=== PATIENT | female | born 1945 | race Caucasian/White ===

== ENCOUNTER → 2018-11-14 09:08 | Outpatient (CLI) | payer MEDICARE, MEDICAID, SELFPAY ==
--- NOTE | 2018-11-14 | DI.NM.S_ITS ---
PROCEDURE: NM BONE SCAN WHOLE BODY RADIOPHARMACEUTICAL: 21.3 mCi Tc-99m MDP IV. INDICATIONS: PAIN IN LEFT KNEE TECHNIQUE: Delayed whole-body scintigrams were obtained approximately 3-4 hours after intravenous injection of radiotracer. Anterior and posterior views were acquired from vertex to feet. Additional left and right oblique views of the bilateral knees were obtained. COMPARISON: [facility], CR, XR KNEE ARTHRITIC SERIES BI, 11/07/2018, 9:36. [facility], CR, XR KNEE 4+ VIEWS BILATERAL, 06/14/2017, 10:17. [facility], MR, KNEE WITHOUT CONTRAST, 03/23/2016, 9:13. [facility], CR, KNEE SERIES RT, 03/09/2016, 10:49. [facility], CR, KNEE 1-2 VIEWS LEFT, 11/03/2010, 18:08. MR, KNEE LT W/O CONTRAST, 10/02/2010, 9:45. FINDINGS: Degenerative osteoarthritic change is present at each a.c. joint, greater on the left than the right. Glenohumeral joint osteoarthritis is present bilaterally, slightly greater on the right than the left. The lumbosacral spine and hip joints bilaterally show a slight degree of degenerative change, but there is asymmetric moderately severe to severe degenerative change at the right knee and ankle, when compared to that on the left where a left knee arthroplasty appears present and there is only a mild degree of elevated as to uptake in that area and at the left ankle. IMPRESSION: Osteoarthritic change is minimal at the hips and lumbosacral spine but moderately severe bilaterally at the shoulders as noted, and especially prominent at the right knee and ankle. Left total knee arthroplasty without evidence of device loosening. Mild elevated isotope uptake in that area and at the left ankle. Dictated by: Gautam Campbell M.D. on 11/14/2018 at 14:50 Approved by: Gautam Campbell M.D. on 11/14/2018 at 15:11
== END ==
PROVIDERS: PCP Physician Assistant Medical; Visit Provider Orthopaedic Surgery
DX: M25.562 Pain in left knee (principal)
CPT/HCPCS: 78306; A9503

== ENCOUNTER 2019-06-23 17:47 | Emergency (ER) | payer MEDICARE, MEDICAID, SELFPAY ==
--- NOTE | 2019-06-23 17:53 | DI.RAD.S_ITS ---
PROCEDURE: XR KNEE LT 3V INDICATIONS: pain fall TECHNIQUE: 3 views of the knee were acquired. COMPARISON: [facility], CR, XR KNEE ARTHRITIC SERIES BI, 04/16/2019, 11:15. [place], [place], [place] BONE SCAN WHOLE BODY, 11/14/2018, 12:50. [facility], , KNEE 1-2 VIEWS LEFT, 11/03/2010, 18:08. FINDINGS: Bones: No fractures or dislocations. Left knee arthroplasty appears intact. The heterotopic ossifications along the quadriceps tendon region on the left have been previously present seen in April 2019 and stable over time. No suspicious bony lesions. Soft tissues: No joint effusion. No suspicious soft tissue calcifications. IMPRESSION: No trauma found, stable appearing left knee arthroplasty, stable appearing portions of heterotopic ossification above the patella previously present. Dictated by: Gautam Campbell M.D. on 06/23/2019 at 18:39 Approved by: Gautam Campbell M.D. on 06/23/2019 at 18:41
[2019-06-23 17:57] VITALS: BP 126/73; PULSE 65; RESP 16; TEMP 36.9; O2SAT 96; BMI 46.9
--- NOTE | 2019-06-23 18:21 | ED.LOWEXIN ---
HPI - Extremity Injury (Lower) General Chief Complaint: Extremity Injury, Lower Stated Complaint: Fell off couch hit buttocks and knee Time Seen by Provider: 06/23/19 17:53 Source: patient and EMS Mode of arrival: EMS Limitations: no limitations History of Present Illness HPI Narrative: 74-year-old female nonsmoker with history of hyperlipidemia presents by EMS for evaluation of her left knee. Patient states that she was attempting to sit back on a couch when she misjudged it and slipped back and is unclear of exactly what happened with her knee but has had discomfort ever since. She does not have any specific range of motion or location that hurts, she just states the whole thing hurts. She did have a total knee replacement years ago. She denies any head neck or back pain. She denies any hip or ankle pain. She states it is worse when she moves and improves with rest. Would be EMS was diverted here as they have no access to orthopedic care currently. MD complaint: knee injury Onset (ago): hour(s) Type of Injury: unknown Place: home Severity: moderate Relieving factors: rest Exacerbating factors: movement Context: fall Associated symptoms: able to partially bear weight Other symptoms: none Related Data Home Medications Medication Instructions Recorded Confirmed albuterol sulfate [Proventil HFA] 2 puff INH PRN #0 07/03/12 03/19/19 atorvastatin 20 mg tablet 20 mg PO 30 Days tab 12/17/17 03/19/19 fluticasone propionate 50 NASAL 30 Days #12 gram 12/17/17 03/19/19 mcg/actuation nasal spray,suspension oxybutynin chloride 10 mg PO 30 Days #30 tab 12/17/17 03/19/19 tablet,extended release 24 hr Previous Rx's Medication Instructions Recorded propranolol 10 mg tablet 10 mg PO BIDP PRN #180 tab 04/21/19 bupropion HCl 300 mg 24 hr tablet, 300 mg PO QAM #90 tab 05/14/19 extended release fluoxetine 20 mg capsule 20 mg PO QDAY #90 cap 05/14/19 gabapentin 100 mg capsule 100 mg PO SEE INSTRUCTIONS #450 cap 05/14/19 prazosin 5 mg capsule 5 mg PO HS #90 cap 05/14/19 Allergies Allergy/AdvReac Type Severity Reaction Status Date / Time amoxicillin Allergy Unknown Verified 05/14/19 10:59 ethyl alcohol Allergy Unknown Verified 05/14/19 10:59 etodolac Allergy Unknown Verified 05/14/19 10:59 naproxen Allergy Unknown Verified 05/14/19 10:59 oxaprozin Allergy Unknown Verified 05/14/19 10:59 risperidone Allergy Unknown Verified 05/14/19 10:59 tetanus toxoid, adsorbed Allergy Unknown Verified 05/14/19 10:59 acetaminophen [From Percocet] Allergy itching Verified 05/14/19 10:59 acyclovir Allergy Verified 05/14/19 10:59 doxycycline Allergy itching Verified 05/14/19 10:59 Iodine and Iodide Containing Allergy Verified 05/14/19 10:59 Produc NSAIDS (Non-Steroidal Allergy Verified 05/14/19 10:59 Anti-Inflamma oxycodone [From Percocet] Allergy itching Verified 05/14/19 10:59 aspirin AdvReac Unknown NON EC Verified 05/14/19 10:59 ASPIRIN CAUSES STOMACH UPSET Review of Systems Constitutional Constitutional: Denies chills, Denies fatigue, Denies fever(s), Denies frequent falls, Denies lethargy and Denies weakness Eyes Eyes: Denies change in vision, Denies eye discharge, Denies irritation and Denies loss of vision ENT Ears, Nose, Mouth, and Throat: Denies change in voice, Denies dizziness, Denies neck pain, Denies sore throat and Denies throat swelling Cardiovascular Cardiovascular: Denies chest pain, Denies irregular heart rhythm, Denies lightheadedness, Denies palpitations, Denies dyspnea, Denies dyspnea on exertion and Denies orthopnea Respiratory Respiratory: Denies cough, Denies dyspnea, Denies dyspnea on exertion and Denies wheezing Gastrointestinal Gastrointestinal: Denies abdominal pain, Denies change in bowel habits, Denies diarrhea, Denies nausea and Denies vomiting Genitourinary Genitourinary: Denies hematuria, Denies flank pain, Denies urinary incontinence and Denies urinary urgency Musculoskeletal Musculoskeletal: Denies back pain, Reports limited range of motion, Denies muscle weakness, Denies neck pain, Denies numbness and Denies tingling Integumentary/Breasts Skin/Breast: Denies pruritus, Denies erythema, Denies rash and Denies wounds Neurologic Neurologic: Denies behavioral changes, Denies confusion, Denies dizziness, Denies frequent falls, Denies loss of vision, Denies numbness, Denies tingling and Denies weakness Psychiatric Psychiatric: Denies anxiety, Denies behavioral changes, Denies confusion, Denies depression, Denies homicidal ideation and Denies suicidal ideation Endocrine Endocrine: Denies fatigue, Denies flushing and Denies palpitations Hematologic/Lymphatic Hematologic/Lymphatic: Denies easy bruising Allergic/Immunologic Allergic/Immunologic: Denies urticaria, Denies throat swelling and Denies wheezing Patient History Social History Smoking Status: Never smoker Exam Narrative Exam Narrative: GENERAL: [74] year old patient appears stated age. Well-nourished, well-developed patient, in mild distress. GCS 15 HEAD: Atraumatic. Normocephalic. EYES: Pupils equal round and reactive. Extraocular motions intact. No scleral icterus. No injection or drainage. ENT: Nose without bleeding, purulent drainage. Throat without erythema, tonsillar hypertrophy or exudate. Airway patent. NECK: Trachea midline. Non tender CARDIOVASCULAR: Regular rate and rhythm without murmurs, gallops, or rubs. RESPIRATORY: Clear to auscultation. Breath sounds equal bilaterally. No wheezes, rales, or rhonchi. GASTROINTESTINAL: Abdomen soft, non-tender, nondistended. EXTREMITIES: No edema or joint tenderness. No effusion, redness or warmth. No joint line tenderness. No pain with axial loading. No pain with Negrito's test BACK: Nontender without deformity or crepitance. No flank tenderness. NEURO: AOx3. SKIN: No rash or erythema of visible areas Initial Vital Signs Initial Vital Signs: Vital Signs Temperature 98.4 F 06/23/19 17:57 Pulse Rate 65 06/23/19 17:57 Respiratory Rate 16 06/23/19 17:57 Blood Pressure 126/73 06/23/19 17:57 Pulse Oximetry 96 06/23/19 17:57 Course Orders Ordered: ED Orders 06/23/19 17:53 XR knee LT 3V Stat Vital Signs Vital signs: Vital Signs - 8 hr 06/23/19 17:57 06/23/19 19:35 Temperature 98.4 F Pulse Rate 65 62 Respiratory Rate 16 16 Blood Pressure 126/73 165/74 H Pulse Oximetry 96 97 MDM - Extremity Injury (Lower) Imaging Data Xray Knee: Radiologist's impression: [address] [address] XRay Report Signed Patient: Mely Campos LMR#: [id number] : 7Acct:[id number] Age/Sex: 74 / FDate of Service: 06/23/19 Loc: ED Accession Number: [id number] Procedure: XR knee LT 3V Ordering Provider: Quiana Brito D.O. PROCEDURE: XR KNEE LT 3V INDICATIONS: pain fall TECHNIQUE: 3 views of the knee were acquired. COMPARISON: [facility], CR, XR KNEE ARTHRITIC SERIES BI, 04/16/2019, 11:15. [place], [place], [place] BONE SCAN WHOLE BODY, 11/14/2018, 12:50. [facility], , KNEE 1-2 VIEWS LEFT, 11/03/2010, 18:08. FINDINGS: Bones: No fractures or dislocations. Left knee arthroplasty appears intact. The heterotopic ossifications along the quadriceps tendon region on the left have been previously present seen in April 2019 and stable over time. No suspicious bony lesions. Soft tissues: No joint effusion. No suspicious soft tissue calcifications. IMPRESSION: No trauma found, stable appearing left knee arthroplasty, stable appearing portions of heterotopic ossification above the patella previously present. Dictated by: Gautam Campbell M.D. on 06/23/2019 at 18:39 Approved by: Gautam Campbell M.D. on 06/23/2019 at 18:41 Discharge Plan Departure Patient Disposition: Home Clinical Impression: Left knee sprain Qualifiers: Encounter type: initial encounter Involved ligament of knee: unspecified ligament Qualified Code(s): S83.92XA - Sprain of unspecified site of left knee, initial encounter Discharge Date/Time: 06/23/19 19:36 Instructions: DI for Knee Sprain Activity Restrictions/Additional Instructions: *You have been diagnosed with Left knee sprain *What to do: *Take medications as directed *Follow up with your primary care provider in 2-3 days, call for an appointment. Let them know you were seen in the Emergency Department and that we ask that you be seen in follow up *Return to ER if you should have any new, worsening or concerning symptoms Prescriptions: No Action atorvastatin 20 mg tablet 20 mg PO 30 Days RF: 0 oxybutynin chloride 10 mg tablet extended release 24hr PO 30 Days Qty: 30 RF: 0 fluticasone propionate 50 mcg/actuation spray,suspension NASAL 30 Days Qty: 12 RF: 0 bupropion HCl 300 mg tablet extended release 24 hr 300 mg PO QAM Qty: 90 RF: 1 fluoxetine 20 mg capsule 20 mg PO QDAY Qty: 90 RF: 1 gabapentin 100 mg capsule 100 mg PO SEE INSTRUCTIONS Qty: 450 RF: 1 prazosin [Minipress] 5 mg capsule 5 mg PO HS Qty: 90 RF: 1 albuterol sulfate [Proventil HFA] 90 MCG/PUFF HFA aerosol inhaler 2 puff INH PRN Qty: 0 RF: 0 propranolol 10 mg tablet 10 mg PO BIDP PRN (Reason: anxiety) Qty: 180 RF: 0 Referrals: Melody Bryant PA-C [Primary Care Provider] -
--- NOTE | 2019-06-23 18:29 | PC.NURSE ---
pt reports she was out at a shop in [place] and went to sit and fell and hit her bottom and her L knee is aching due to crawling around and trying to stand. pt reports she is not able to bear weight. She has had her L knee replaced in the past. No swelling noted. denies hip pain, no noted leg shortening. 2+ pulses. taken for XR. in to assess
[2019-06-23 19:35] VITALS: BP 165/74; PULSE 62; RESP 16; O2SAT 97
== END 2019-06-23 19:36 | disposition home or self-care (01) ==
PROVIDERS: Emergency Provider Emergency Medicine; PCP Physician Assistant Medical
DX: S83.92XA Sprain of unspecified site of left knee, initial encounter (principal); W19.XXXA Unspecified fall, initial encounter
CPT/HCPCS: 73562; 99282; 99283

== ENCOUNTER → 2020-10-10 13:15 | Outpatient (CLI) | payer MEDICARE, MEDICAID, SELFPAY ==
[2020-10-10 17:05] LABS: COVID19 -Nasal RAPID Negative (Negative)
== END ==
PROVIDERS: PCP Physician Assistant Medical; Visit Provider Physician Assistant
DX: Z01.812 Encounter for preprocedural laboratory examination (principal); Z20.822 Contact with and (suspected) exposure to COVID-19
CPT/HCPCS: 87635; C9803

== ENCOUNTER 2020-10-12 08:04 | Day surgery (SDC) | payer MEDICARE, MEDICAID, SELFPAY ==
--- NOTE | 2020-10-11 18:47 | PM.PREOP ---
Pre-operative Note COVID-19 COVID-19 status: Negative Interval Note History & Physical reviewed/Exam performed by Physician: Yes Changes to H&P: No H&P completed within 30 days and has changed as indicated here:: Fasting glucose 151. Patient cooperative and in good spirits.
[2020-10-12] VITALS (10 sets, daily range): BP systolic 119–163; BP diastolic 67–93; PULSE 59–76; RESP 11–21; TEMP 36.1–36.7; O2SAT 94–98; BMI 36.3
--- NOTE | 2020-10-12 07:25 | PM.OP.1 ---
Operative Date/Time/Diagnoses Date of procedure: 10/12/20 Time of procedure: 09:45 Procedure & Clinicians Procedure: Preoperative diagnoses: 1. 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 2. Schizophrenia with a tardive dyskinesia requiring general anesthesia. 3. Diabetes. 4. Bipolar disorder 5. Previous deep vein thrombosis 6. Depression 6. Arthritis 7. Hernia. Postoperative diagnoses: 1. Cataract removed by phacoemulsification with placement of posterior chamber intraocular lens with general anaesthesia use of capsular dye . Procedure: Phacoemulsification with posterior chamber intraocular lens implant Surgeon: Radha Vidal MD Complications: None Specimen: None Implant: [id number]+18.0 Blood loss: None Anesthesia: Retrobulbar with monitored standby Description of procedure: Patient presents with a complaint of decreased vision due to cataract which is affecting activities of daily living. She has a difficult time expressing her visual ability due to her psychiatric condition. She is now having difficulty however worth more for standard activities and she has very dense cataract. Removing this may improve her risk of falls and quality of life. She does have a caregiver and has plans on how to help with her postoperative care. The patient wants surgery to improve vision. The patient was taken to the operating room and given IV sedation. A laryngeal mask airway was placed due to her tardive dyskinesia and ability to cooperate. A retrobulbar block consisting of 6 cc of 2% xylocaine without epinephrine mixed half and half with 0.5% Marcaine with 1 cc of hyaluronidase added is placed between the medial and lateral 1/3 of the inferior orbital rim for intraoperative and postop anesthesia. A Betadine patch test was done in the preoperative holding room and she did not react and therefore it was felt safe to use this for her eye prep. The eye is manually massaged for 30 sec, prepped using Betadine solution, and draped in the usual sterile fashion. Temporal approach was made, a 1 mm side-port incision was made 90? from the proposed clear corneal incision position. Phenylephrine 1.5% mixed with 1% xylocaine 0.2 cc was placed into the anterior chamber. An air bubble was placed followed by capsular dye. The excess dye and air was then irrigated out using BSS. Viscoat followed by Healon was then placed. A 2.6 mm clear incision with a 2.6 mm blade was placed. A 360 degree capsulorrhexis style capsulotomy was then performed with a cystitome needle on a Bomboardon. Hydrodelineation and hydrodissection were performed. The phacoemulsification unit is introduced, and sculpting notice used to groove the central lens. I was able to crack it and the zonules held intact therefore a MiLoop was not used. The lens was divided into quadrants. The lens was then removed in chopping mode. Epi nucleus is removed with epinuclear mode and irrigation aspiration was used to remove the peripheral cortex. The posterior capsule is polished. The intraocular lens is selected, inspected, power confirmed, and placed in the posterior chamber. The wound was stromally hydrated and tested for leaks, there was none and it was left sutureless. Vigamox 0.1 cc was placed into the anterior chamber. Kenalog 0.2 cc was placed in the superior subconjunctival space. A drop of antibiotic and was placed and the eye was patched and shielded. The patient was stable and returned to the recovery room in excellent condition. Dictated by: Radha Vidal MD Copy to: [facility] Same procedure as scheduled: Yes
[2020-10-12] MEDS: PROPARACAINE 0.5% OPHTH SOL 2 DROPS EYE-OP (08:49)
[2020-10-12] MEDS: LACTATED RINGERS 1,000 ML 42 ML IV (08:51)
[2020-10-12] MEDS: CATARACT EYE COMPOUND (10 DROPS/SYRINGE) 3 DROPS EYE-OP (08:51)
[2020-10-12] MEDS: LIDOCAINE 2% 4 ML, BUPIVACAINE 0.5% (PF) 4 ML, HYALURONIDASE 150 UNIT INJ (09:56)
[2020-10-12] MEDS: CHONDROIDTIN/SOD HYALURONATE 1.05 ML SYRINGE INTRAOCULA (10:06)
[2020-10-12] MEDS: ERYTHROMYCIN OPHTH 1 GM OINT 1 APPLIC EYE-LEFT (10:06)
[2020-10-12] MEDS: HYALURONATE SODIUM 10 MG/ML SYRINGE INJ (10:06)
[2020-10-12] MEDS: PHENYLEPHRINE/LIDOCAINE VIAL (OR) 0.2 ML EYE-OP (10:07)
[2020-10-12] MEDS: TRYPAN BLUE 0.5 ML SYRINGE INJ (10:07)
[2020-10-12] MEDS: MOXIFLOXACIN INJ 5 MG/ML VIAL EYE-OP (10:07)
[2020-10-12] MEDS: TRIAMCINOLONE 50 MG/5 ML VIAL INJ (10:07)
[2020-10-12] MEDS: BALANCED SALT IRRIG SOLN NO.2 500 ML, EPINEPHrine 1 MG IRR (10:08)
== END 2020-10-12 11:35 | disposition home or self-care (01) ==
LOC: OR 08:08
PROVIDERS: PCP Physician Assistant Medical; Referring Provider Ophthalmology; Visit Provider Ophthalmology
PROC: (CPT 66982; principal; 2020-10-12 09:45)
DX: H25.812 Combined forms of age-related cataract, left eye (principal); F25.9 Schizoaffective disorder, unspecified; G24.01 Drug induced subacute dyskinesia; E11.9 Type 2 diabetes mellitus without complications; Z86.718 Personal history of other venous thrombosis and embolism; F32.9 Major depressive disorder, single episode, unspecified
CPT/HCPCS: 66982; J0171; J2704; J3301; J3470

== ENCOUNTER → 2020-10-24 13:19 | Outpatient (CLI) | payer MEDICARE, MEDICAID, SELFPAY ==
[2020-10-24 15:58] LABS: COVID19 -Nasal RAPID Negative (Negative)
== END ==
PROVIDERS: PCP Physician Assistant Medical; Visit Provider Physician Assistant
DX: Z20.822 Contact with and (suspected) exposure to COVID-19 (principal)
CPT/HCPCS: 87635; C9803

== ENCOUNTER 2020-10-26 06:29 | Day surgery (SDC) | payer MEDICARE, MEDICAID, SELFPAY ==
--- NOTE | 2020-10-25 18:11 | PM.PREOP ---
Pre-operative Note COVID-19 COVID-19 status: Negative Interval Note History & Physical reviewed/Exam performed by Physician: Yes Changes to H&P: No H&P completed within 30 days and has changed as indicated here:: Fasting glucose is 137.
[2020-10-26] VITALS (11 sets, daily range): BP systolic 129–165; BP diastolic 69–84; PULSE 63–72; RESP 12–18; TEMP 35.9–36.6; O2SAT 94–99; BMI 37.1
[2020-10-26] MEDS: CATARACT EYE COMPOUND (10 DROPS/SYRINGE) 3 DROPS EYE-OP (07:25)
[2020-10-26] MEDS: PROPARACAINE 0.5% OPHTH SOL 2 DROPS EYE-OP (07:30)
--- NOTE | 2020-10-26 07:32 | PM.OP.1 ---
Operative Date/Time/Diagnoses Date of procedure: 10/26/20 Time of procedure: 07:45 Procedure & Clinicians Procedure: Preoperative diagnoses: 1. Right complex surgery with use of capsular dye. 2. Mature or advanced nuclear sclerotic and cortical cataract with poor visibility of the anterior capsule increasing surgical risks of complications. 3. Schizophrenia. 4. Bipolar Depressive disorder 5. Diabetes 6. Hernia. 7. Sleep apnea 8. Arrhythmia Postoperative diagnoses: 1. Complex surgery with use of capsular dye, 2. Placement of a posterior chamber intraocular lens implant. Surgeon: Radha Vidal MD Complications: none Specimen: None Implant: [id number]+18.5 Blood loss: None Anesthesia: Retrobulbar with monitored standby. Description of procedure: Dictated by: Radha Vidal MD Post operative diagnoses: 1. Right cataract removed with use of capsular dye . 2. Placement of a posterior chamber intraocular lens. Procedure: Phacoemulsification with posterior chamber intraocular lens implant Surgeon: Radha Vidal MD Blood loss: None Anesthesia: Laryngeal mask airway with Retrobulbar with monitored standby Description of procedure: Patient has presented with decreased vision due to cataract which is affecting activities of daily living. She has schizophrenia bipolar disorder and has now noted her advanced cataracts are interfering with her distance and near vision by causing significant blur. Although she has caregiver she places her on medications and needs to see better. She has had successful left cataract surgery 2 weeks ago under general anesthesia due to this disorder. She understands the extra risk due to advanced cataract and for surgery during COVID-19 epidemic. Her blood sugar is stable at 130 and she is cooperative and understands risks and. The patient wants surgery to improve vision. A distance target is chosen. The patient was taken to the operating room and given IV sedation. A laryngeal mask airway was placed. A retrobulbar block consisting of 6 cc of 2% xylocaine without epinephrine mixed half and half with 0.5% Marcaine with 1 cc of hyaluronidase added is placed between the medial and lateral 1/3 of the inferior orbital rim for postop pain control. The eye is manually massaged for 30 sec, prepped using Betadine solution, and draped in the usual sterile fashion. Temporal approach was made, a 1 mm side-port incision was performed 90 degrees from the planned corneal wound. Phenylephrine 1.5% mixed with 1% xylocaine 0.2 cc was placed into the anterior chamber. An air bubble was placed and Visudyne dye was placed to improve visibility of the anterior capsule. The dye was irrigated out to reduce bubbles. Viscoat followed by Panfilo was then placed. A 2.6 mm clear incision with a 2.6 mm blade was placed. A 360 degree capsulorrhexis style capsulotomy was then performed with a cystitome needle on a Healon. Hydrodelineation and hydrodissection were performed. The phacoemulsification unit is introduced, and sculpting used to groove the central lens. It is then removed in chopping mode. Epi nucleus is removed with epinuclear mode and irrigation aspiration was used to remove the peripheral cortex. The posterior capsule is polished. The intraocular lens is selected, inspected, power confirmed, and placed in the posterior chamber. The pupil was constricted with Miostat. The wound was stromally hydrated and tested for leaks, there was none and was left sutureless. Vigamox 0.1 cc was placed into the anterior chamber. Kenalog 0.2 cc was placed in the superior subconjunctival space. A drop of antibiotic and was placed and the eye was patched and shielded. The patient was stable and returned to the recovery room in excellent condition after extubation . Dictated by: Radha Vidal MD Copy to: [facility] Same procedure as scheduled: Yes
[2020-10-26] MEDS: LACTATED RINGERS 1,000 ML 42 ML IV (07:45)
[2020-10-26] MEDS: CHONDROIDTIN/SOD HYALURONATE 1.05 ML SYRINGE INTRAOCULA (08:19)
[2020-10-26] MEDS: ERYTHROMYCIN OPHTH 1 GM OINT 1 APPLIC EYE-RIGHT (08:19)
[2020-10-26] MEDS: PHENYLEPHRINE/LIDOCAINE VIAL (OR) 0.2 ML EYE-OP (08:19)
[2020-10-26] MEDS: HYALURONATE SODIUM 10 MG/ML SYRINGE INJ (08:19)
[2020-10-26] MEDS: TRIAMCINOLONE 50 MG/5 ML VIAL INJ (08:20)
[2020-10-26] MEDS: MOXIFLOXACIN INJ 5 MG/ML VIAL EYE-OP (08:20)
[2020-10-26] MEDS: TRYPAN BLUE 0.5 ML SYRINGE INJ (08:21)
[2020-10-26] MEDS: BALANCED SALT IRRIG SOLN NO.2 500 ML, EPINEPHrine 1 MG IRR (08:21)
[2020-10-26] MEDS: LIDOCAINE 2% 4 ML, BUPIVACAINE 0.5% (PF) 4 ML, HYALURONIDASE 150 UNIT INJ (08:22)
== END 2020-10-26 10:01 | disposition home or self-care (01) ==
LOC: OR 06:34
PROVIDERS: PCP Physician Assistant Medical; Referring Provider Ophthalmology; Visit Provider Ophthalmology
PROC: (CPT 66982; principal; 2020-10-26 07:45)
DX: H25.811 Combined forms of age-related cataract, right eye (principal); E11.9 Type 2 diabetes mellitus without complications; I49.9 Cardiac arrhythmia, unspecified; F20.9 Schizophrenia, unspecified; J45.909 Unspecified asthma, uncomplicated; G47.33 Obstructive sleep apnea (adult) (pediatric)
CPT/HCPCS: 66982; 82962; J0171; J1100; J2405; J2704; J3301; J3470

== ENCOUNTER 2021-03-02 23:18 | Emergency (ER) | payer MEDICARE, MEDICAID, SELFPAY ==
[2021-03-02 23:42] VITALS: BP 139/85; PULSE 104; RESP 24; TEMP 37.1; O2SAT 95; BMI 47.1
[2021-03-03] VITALS (24 sets, daily range): BP systolic 133–178; BP diastolic 60–82; PULSE 79–105; O2SAT 92–96
--- NOTE | 2021-03-03 03:11 | ED_ITS ---
HPI - Abdominal Pain General Chief Complaint: Abdominal Pain Stated Complaint: Abd pain Time Seen by Provider: 03/03/21 02:20 Source: patient and EMS Mode of arrival: EMS Limitations: no limitations History of Present Illness HPI narrative: 75-year-old woman with a history of hypertension hyperlipidemia depression and recurrent umbilical hernia presents 24 hours after discharge from [facility] after 2nd umbilical hernia repair. She complains of increasing abdominal pain and distension. States that she is passing gas however pain is not being adequately controlled at the [facility] where [facility] is [facility]. As they are just meeting this woman they were concerned and sent her for further emergency room evaluation. Related Data Home Medications Medication Instructions Recorded Confirmed albuterol sulfate 90 mcg/actuation 2 puff INH PRN #0 07/03/12 02/17/21 aerosol inhaler (Proventil HFA) atorvastatin 20 mg tablet 20 mg PO BEDTIME 30 Days tab 12/17/17 02/17/21 Lactobacillus acidophilus 1 cap PO DAILY 10/12/20 02/17/21 (Acidophilus) calcium carbonate 600 mg calcium 1,200 mg PO DAILY 10/12/20 02/17/21 (1,500 mg) tablet (Calcium) cholecalciferol (vitamin D3) 25 25 mcg PO DAILY 10/12/20 02/17/21 mcg (1,000 unit) capsule (Vitamin D3) dicyclomine 10 mg capsule 10 mg PO QID 10/12/20 02/17/21 meloxicam 7.5 mg tablet 7.5 mg PO DAILY 10/12/20 02/17/21 montelukast 10 mg tablet 10 mg PO DAILY 10/12/20 02/17/21 oxybutynin chloride 10 mg 10 mg PO DAILY 10/12/20 02/17/21 tablet,extended release 24 hr acetaminophen 500 mg tablet 500 mg PO Q6H PRN 02/17/21 02/17/21 (Tylenol Extra Strength) fluticasone 100 mcg-salmeterol 50 1 inh INHALATION BID 02/17/21 02/17/21 mcg/dose blistr powdr for inhalation (Advair Diskus) ondansetron 8 mg disintegrating 8 mg PO Q12H 02/17/21 02/17/21 tablet Previous Rx's Medication Instructions Recorded bupropion HCl 300 mg 24 hr tablet, 300 mg PO QAM #90 tab 02/17/21 extended release fluoxetine 20 mg capsule 20 mg PO QDAY #90 cap 02/17/21 gabapentin 100 mg capsule 100 mg PO SEE INSTRUCTIONS #450 cap 02/17/21 prazosin 5 mg capsule (Minipress) 5 mg PO HS #90 cap 02/17/21 propranolol 10 mg tablet 10 mg PO BIDP PRN #180 tab 02/17/21 Allergies Allergy/AdvReac Type Severity Reaction Status Date / Time amoxicillin Allergy Unknown Verified 02/17/21 12:54 ethyl alcohol Allergy Unknown Verified 02/17/21 12:54 etodolac Allergy Unknown Verified 02/17/21 12:54 oxaprozin Allergy Unknown Verified 02/17/21 12:54 risperidone Allergy Unknown Verified 02/17/21 12:54 tetanus toxoid, adsorbed Allergy Unknown Verified 02/17/21 12:54 acyclovir Allergy Verified 02/17/21 12:54 doxycycline Allergy itching Verified 02/17/21 12:54 Iodine and Iodide Containing Allergy Verified 02/17/21 12:54 Produc oxycodone [From Percocet] Allergy itching Verified 02/17/21 12:54 Review of Systems Review of Systems Narrative: Recent hospitalization but no reports of fever. She has a baseline standard cough that is not changed. She notes that she is passing gas but has not yet had a bowel movement post surgery. She has an abdominal binder in place. Chronic and unchanged lower extremity edema, no headaches no acute neur ologic changes Patient History Medical History (Updated 03/03/21 @ 07:18 by Judie Velazquez MD) Bipolar disorder Schizophrenia Social History household members: none Smoking Status: Never smoker alcohol intake: never Smoking Status: Never smoker Substance Use Type: does not use Exam Narrative Exam Narrative: General: Morbidly obese woman in moderate distress able to cooperate fully with history and exam HEENT: Moist mucous membranes, normal sclera with reactive pupils, Respiratory: Lungs are clear to auscultation, no wheezing no rales no rhonchi. Full and symmetrical air movement Cardiac: Regular rate and rhythm no murmurs no bruits Abdomen: Distended, tender, surgical dressing in place midline, hyperactive bowel tones without borborygmi Skin: Warm and dry, no rashes Neurologic: Grossly neurologically intact with no obvious asymmetries or abnormalities Extremities: No trauma, well perfused Psych: Cooperative, appropriate insight and affect Initial Vital Signs Initial Vital Signs: Vital Signs Temperature 98.8 F 03/02/21 23:42 Pulse Rate 104 H 03/02/21 23:42 Respiratory Rate 24 03/02/21 23:42 Blood Pressure 139/85 03/02/21 23:42 Pulse Oximetry 95 03/02/21 23:42 Course Orders Ordered: ED Orders 03/03/21 03:14 Urinalysis and Microscopic Stat 03/03/21 03:21 Complete Blood Count AUTO DIFF Stat Comprehensive Metabolic Panel Stat Type and Screen Stat 03/03/21 05:34 CT abdomen pelvis wo con Stat Hydromorphone HCl (Hydromorphone 0.5 Mg Inj) 0.5 mg IV Q15MIN PRN PRN Reason: Pain, Last Admin: 03/03/21 06:44 Dose: 0.5 mg Documented by: MAMADOU Discontinued Medications Oxycodone HCl (Oxycodone Ir 5 Mg Tablet) 5 mg PO NOW ONE Stop: 03/03/21 07:21 Vital Signs Vital signs: Vital Signs - 8 hr 03/02/21 23:42 03/03/21 00:54 03/03/21 00:56 Temperature 98.8 F Pulse Rate 104 H 97 H 98 H Respiratory Rate 24 Blood Pressure 139/85 178/78 H Pulse Oximetry 95 95 95 03/03/21 01:00 03/03/21 01:30 03/03/21 02:00 Temperature Pulse Rate 94 H 97 H 92 H Respiratory Rate Blood Pressure 170/76 H 162/74 H Pulse Oximetry 93 95 95 03/03/21 02:01 03/03/21 02:30 03/03/21 03:00 Temperature Pulse Rate 95 H 95 H 95 H Respiratory Rate Blood Pressure 152/69 H 152/72 H 171/79 H Pulse Oximetry 95 95 95 03/03/21 03:30 03/03/21 03:31 03/03/21 04:00 Temperature Pulse Rate 94 H 93 H 91 H Respiratory Rate Blood Pressure 157/67 H 159/73 H Pulse Oximetry 95 94 94 03/03/21 04:30 03/03/21 04:31 03/03/21 05:00 Temperature Pulse Rate 91 H 90 92 H Respiratory Rate Blood Pressure 149/69 H 166/74 H Pulse Oximetry 94 94 95 03/03/21 05:30 03/03/21 05:31 03/03/21 06:00 Temperature Pulse Rate 105 H 105 H 92 H Respiratory Rate Blood Pressure 156/82 H Pulse Oximetry 96 96 94 03/03/21 06:01 03/03/21 06:30 03/03/21 07:00 Temperature Pulse Rate 89 83 95 H Respiratory Rate Blood Pressure 168/69 H Pulse Oximetry 94 92 95 MDM - Abdominal Pain Lab Data Result diagrams: 03/03/21 03:21 03/03/21 03:21 Labs: Lab Results 03/03/21 03/03/21 03/03/21 Range/Units 03:21 03:21 03:21 WBC 12.0 H (4.5-11.0) X10^3/uL RBC 4.26 (4.0-5.2) X10^6/uL Hgb 11.9 L (12.0-16.0) g/dL Hct 37.6 (36-46) % MCV 88.3 (80-100) fL MCH 28.0 (26-34) PG MCHC 31.7 (30-36) % RDW 15.6 H (11.6-14.8) % Plt Count 353 (150-400) X10^3/uL Neut % (Auto) 63.7 (50-75) % Lymph % (Auto) 17.8 L (25-40) % [place] % (Auto) 6.9 (3-14) % Eos % (Auto) 10.5 H (2-4) % Baso % (Auto) 1.1 (0-2) % Neut # (Auto) 7600 H (8903-4445) /uL Lymph # (Auto) 2100 (8175-4429) /uL [place] # (Auto) 800 (0-900) /uL Eos # (Auto) 1300 H (0-450) /uL Baso # (Auto) 100 (0-100) /uL Sodium 137 (137-145) mmol/L Potassium 4.0 (3.4-5.1) mmol/L Chloride 105 (98-107) mmol/L Carbon Dioxide 25 (22-32) mmol/L BUN 6 L (7-17) mg/dL Creatinine 0.79 (0.52-1.04) mg/dL Estimated GFR > 60.0 (>60) mL/min BUN/Creatinine Ratio 7.6 (6-22) Glucose 161 H (80-110) mg/dL Calcium 9.3 (8.4-10.2) mg/dL Total Bilirubin 0.4 (0.2-1.3) mg/dL AST 44 H (14-36) IU/L ALT 34 (<35) IU/L Alkaline Phosphatase 112 (38-126) U/L Total Protein 7.0 (6.3-8.2) g/dL Albumin 3.7 (3.5-5.0) g/dL Globulin 3.3 (1.7-4.1) g/dL Albumin/Globulin Ratio 1.1 (1.0-2.8) Urine Color Urine Appearance Urine pH (4.5-8.0) Ur Specific [place] (1.000-1.035) Urine Protein (Negative) Urine Glucose (UA) (Negative) g/dL Urine Ketones (NEGATIVE) Urine Occult Blood (Negative) Urine Nitrate (Negative) Urine Bilirubin (NEGATIVE) Urine Urobilinogen (0.2) E.U./dL Ur Leukocyte Esterase (NEGATIVE) Blood Type O Negative Antibody Screen Negative 03/03/21 Range/Units 07:13 WBC (4.5-11.0) X10^3/uL RBC (4.0-5.2) X10^6/uL Hgb (12.0-16.0) g/dL Hct (36-46) % MCV (80-100) fL MCH (26-34) PG MCHC (30-36) % RDW (11.6-14.8) % Plt Count (150-400) X10^3/uL Neut % (Auto) (50-75) % Lymph % (Auto) (25-40) % [place] % (Auto) (3-14) % Eos % (Auto) (2-4) % Baso % (Auto) (0-2) % Neut # (Auto) (3036-8138) /uL Lymph # (Auto) (8867-2217) /uL [place] # (Auto) (0-900) /uL Eos # (Auto) (0-450) /uL Baso # (Auto) (0-100) /uL Sodium (137-145) mmol/L Potassium (3.4-5.1) mmol/L Chloride (98-107) mmol/L Carbon Dioxide (22-32) mmol/L BUN (7-17) mg/dL Creatinine (0.52-1.04) mg/dL Estimated GFR (>60) mL/min BUN/Creatinine Ratio (6-22) Glucose (80-110) mg/dL Calcium (8.4-10.2) mg/dL Total Bilirubin (0.2-1.3) mg/dL AST (14-36) IU/L ALT (<35) IU/L Alkaline Phosphatase (38-126) U/L Total Protein (6.3-8.2) g/dL Albumin (3.5-5.0) g/dL Globulin (1.7-4.1) g/dL Albumin/Globulin Ratio (1.0-2.8) Urine Color Yellow Urine Appearance Clear Urine pH 7.0 (4.5-8.0) Ur Specific [place] 1.010 (1.000-1.035) Urine Protein Negative (Negative) Urine Glucose (UA) Negative (Negative) g/dL Urine Ketones Negative (NEGATIVE) Urine Occult Blood Negative (Negative) Urine Nitrate Negative (Negative) Urine Bilirubin Negative (NEGATIVE) Urine Urobilinogen 0.2 (0.2) E.U./dL Ur Leukocyte Esterase Trace H (NEGATIVE) Blood Type Antibody Screen Imaging Data CT scan - abdomen/pelvis: My Impression: Marked distention of the bladder suggesting postsurgical urinary retention. Cystic lesion within the left adnexa which may arise from the left ovary. Nonobstructing left renal calculus. Gas this distention of the colon extends to the level of the sigmoid colon is likely on the basis of a colonic ileus. Emmy Hurley MD [facility] Narrative Medical decision making narrative: 75-year-old woman discharged yesterday after an umbilical hernia repair. Surgical dressings are clean and dry. CT scan of the abdomen shows significantly distended bladder and significant air within the colon. She does not appear to have a colonic obstruction rather an ileus. The bladder is decompressed with a Schmitz catheter will which will be left in place for the next week. Presumably her pain and difficulty in having a bowel movement is related to the significantly distended bladder. She states that she is passing quite a bit of flatus. White count is minimally elevated. Pain is adequately controlled at this point she will be able to safely return to the [facility] for continued surgical recovery as initially planned. Discharge Plan Departure Patient Disposition: Home Clinical Impression: Acute urinary retention Instructions: DI for Urinary Retention in Women Activity Restrictions/Additional Instructions: Thank you for coming to the ER to be further evaluated today Your CT scan showed a significantly distended bladder and a Schmitz catheter was placed. Over 2 L of urine were drained. I suspect that this is definitely contributing to your overall pain and the reason that your that is are not returning to full function immediately afte surgery. I expect that you will begin to recover nicely now that your bladder is able to drain. I hope the rest of your recovery goes well Prescriptions: No Action atorvastatin 20 mg tablet 20 mg PO BEDTIME 30 Days RF: 0 ondansetron 8 mg tablet,disintegrating 8 mg PO Q12H RF: 0 fluticasone propion-salmeterol [Advair Diskus] 100-50 mcg/dose blister with device 1 inh inhalation BID RF: 0 acetaminophen [Tylenol Extra Strength] 500 mg tablet 500 mg PO Q6H PRNRF: 0 bupropion HCl 300 mg tablet extended release 24 hr 300 mg PO QAM Qty: 90 RF: 2 fluoxetine 20 mg capsule 20 mg PO QDAY Qty: 90 RF: 2 gabapentin 100 mg capsule 100 mg PO SEE INSTRUCTIONS Qty: 450 RF: 2 prazosin [Minipress] 5 mg capsule 5 mg PO HS Qty: 90 RF: 2 propranolol 10 mg tablet 10 mg PO BIDP PRN (Reason: anxiety) Qty: 180 RF: 1 albuterol sulfate [Proventil HFA] 90 MCG/PUFF HFA aerosol inhaler 2 puff INH PRN Qty: 0 RF: 0 oxybutynin chloride 10 mg tablet extended release 24hr 10 mg PO DAILY RF: 0 meloxicam 7.5 mg tablet 7.5 mg PO DAILY RF: 0 calcium carbonate [Calcium 600] 600 mg calcium (1,500 mg) Tablet 1,200 mg PO DAILY RF: 0 montelukast 10 mg tablet 10 mg PO DAILY RF: 0 Lactobacillus acidophilus [Acidophilus] Capsule 1 cap PO DAILY RF: 0 dicyclomine 10 mg capsule 10 mg PO QID RF: 0 cholecalciferol (vitamin D3) [Vitamin D3] 25 mcg (1,000 unit) Capsule 25 mcg PO DAILY RF: 0 Referrals: Melody Bryant PA-C [Primary Care Provider] -
[2021-03-03 03:35] LABS: Add Manual Diff / Slide Review NO; Basophils Absolute Auto 100 /uL (0-100); Basophils Percent Auto 1.1 % (0-2); Eosinophils Absolute Auto 1300 /uL (0-450); Eosinophils Percent Auto 10.5 % (2-4); Hematocrit 37.6 % (36-46); Hemoglobin 11.9 g/dL (12.0-16.0); Lymphocytes Absolute Auto 2100 /uL (1100-4500); Lymphocytes Percent Auto 17.8 % (25-40); Mean Corpuscular HGB Conc 31.7 % (30-36); Mean Corpuscular Volume 88.3 fL (80-100); Monocytes Absolute Auto 800 /uL (0-900); Monocytes Percent Auto 6.9 % (3-14); Neutrophils Absolute Auto 7600 /uL (1500-7000); Neutrophils Percent Auto 63.7 % (50-75); Platelet Count 353 X10^3/uL (150-400); Red Blood Cell Count 4.26 X10^6/uL (4.0-5.2); Red Cell Distribution Width 15.6 % (11.6-14.8)
[2021-03-03 03:46] LABS: Alanine Aminotransferase 34 IU/L (<35); Albumin 3.7 g/dL (3.5-5.0); Albumin Globulin Ratio 1.1 (1.0-2.8); Alkaline Phosphatase 112 U/L (38-126); Aspartate Aminotransferase 44 IU/L (14-36); BUN Creatinine Ratio 7.6 (6-22); Bilirubin Total 0.4 mg/dL (0.2-1.3); Blood Urea Nitrogen 6 mg/dL (7-17); Calcium 9.3 mg/dL (8.4-10.2); Carbon Dioxide 25 mmol/L (22-32); Chloride 105 mmol/L (98-107); Estimated Glomerular Filt Rate > 60.0 mL/min (>60); Globulin 3.3 g/dL (1.7-4.1); Glucose 161 mg/dL (80-110); HEMOLYSIS < 15 (0-50); Sodium 137 mmol/L (137-145)
--- NOTE | 2021-03-03 05:34 | DI.CT.S_ITS ---
PROCEDURE: CT ABDOMEN PELVIS WO CON INDICATIONS: post op abdominal wall hernia, severe abdominal pain TECHNIQUE: Noncontrast 5 mm thick sections acquired from the diaphragms to the symphysis. 5 mm coronal and sagittal reformats were then performed. For radiation dose reduction, the following was used: automated exposure control, adjustment of mA and/or kV according to patient size. COMPARISON: None. FINDINGS: Image quality: Excellent. ABDOMEN: Lung bases: Lung bases are clear except for dependent atelectasis. Heart size is normal. Solid organs: Liver is normal in size. Gallbladder has been resected.. Pancreas is normal in contours. Spleen is normal in size. No adrenal nodules. Kidneys are normal in size, without hydronephrosis or right-sided nephrolithiasis. There is a nonobstructive left side lower 3rd collecting system 3 x 5 mm calculus. Peritoneum and bowel: Unenhanced small bowel loops demonstrate normal wall thickness and caliber. The colon is gas-filled but not demonstrating true distension. No free fluid or air. Nodes and vessels: No retroperitoneal or mesenteric adenopathy by size criteria. Aorta and inferior vena cava are normal in caliber. Miscellaneous: No ventral hernias. Postsurgical changes including a small air-fluid level are noted at the midline anterior body wall subcutaneous fat, with adjacent edema best seen centered on series 2, image 79. PELVIS: Genitourinary: Bladder wall thickness is normal but the bladder appears relatively distended, with maximal transverse dimension measuring up to 15.6 cm and the bladder upper margin extending almost to the level of the umbilicus.. Miscellaneous: No inguinal hernias or adenopathy. Appendix found right lower quadrant. Bones: No suspicious bony lesions. No vertebral body compression fractures. IMPRESSION: 1. Bladder distension as noted, Schmitz catheter may be warranted. 2. Postsurgical change at the midline lower abdomen/pelvis body wall with a small air-fluid level and mild edema. A definite abscess is not found. This may simply represent postsurgical change but close clinical correlation is recommended. 3. Gas filling of the colon but without true colonic distension. Postoperative ileus is the likely cause. 4. Two small cysts are present at the left adnexa, the largest of which measures up to 1.9 cm AP and 3.1 cm transverse. This area could be further assessed more accurately with pelvic ultrasound if clinically warranted. 5. The clinical history appears to indicate ventral body wall hernia repair was performed-no residual hernia identified. Dictated by: Gautam Campbell M.D. on 03/03/2021 at 9:11 Approved by: Gautam Campbell M.D. on 03/03/2021 at 9:21
[2021-03-03] MEDS: HYDROMORPHONE 0.5 MG INJ IV ×2 (06:44→07:08)
--- NOTE | 2021-03-03 07:24 | PC.NURSE ---
pt resting comfortably, respirations even and all vitals wnl.
[2021-03-03 07:25] LABS: RBC Urine None Seen (0-5/HPF)
[2021-03-03 07:26] LABS: Appearance Urine UA CLEAR; Bilirubin Urine UA NEGATIVE (NEGATIVE); Color Urine UA YELLOW; Glucose Urine UA NEGATIVE (Negative); Ketones Urine UA NEGATIVE (NEGATIVE); Leukocyte Esterase Urine UA TRACE (NEGATIVE); Nitrite Urine UA NEGATIVE (Negative); Occult Blood Urine UA NEGATIVE (Negative); Protein Urine UA NEGATIVE (Negative); Urobilinogen Urine UA 0.2 E.U./dL (0.2)
[2021-03-03 07:35] LABS: Bacteria Urine Few (2-10); Culture Indicated Urine Specimen Cultured; Squamous Epithelial Cell Urine 0-1 /HPF (0-5/HPF); WBC Urine 1-5/HPF (0-5/HPF)
[2021-03-03] MEDS: OXYCODONE IR 5 MG TABLET PO (07:48)
== END 2021-03-03 09:00 | disposition home or self-care (01) ==
PROVIDERS: Emergency Provider Emergency Medicine; PCP Physician Assistant Medical
DX: R33.8 Other retention of urine (principal)
CPT/HCPCS: 36415; 51702; 74176; 80053; 81001; 85025; 86850; 86900; 86901; 87086; 96374; 99284; J1170

== ENCOUNTER → 2021-03-09 22:20 | Outpatient (ROUT) | payer MEDICARE, MEDICAID, SELFPAY ==
[2021-03-09 23:33] LABS: WBC Urine None Seen (0-5/HPF)
[2021-03-09 23:40] LABS: Bilirubin Urine UA NEGATIVE (NEGATIVE); Color Urine UA YELLOW; Glucose Urine UA NEGATIVE (Negative); Ketones Urine UA NEGATIVE (NEGATIVE); Leukocyte Esterase Urine UA TRACE (NEGATIVE); Nitrite Urine UA NEGATIVE (Negative); Occult Blood Urine UA NEGATIVE (Negative); Protein Urine UA NEGATIVE (Negative); Specific Gravity Urine UA <=1.005 (1.000-1.035); Urobilinogen Urine UA 0.2 E.U./dL (0.2)
[2021-03-09 23:41] LABS: Appearance Urine UA Slightly Cloudy; RBC Urine 1-5/HPF (0-5/HPF)
[2021-03-09 23:42] LABS: Bacteria Urine Moderate (10-30); Calcium Oxalate Crystals Urine Occasional; Squamous Epithelial Cell Urine 0-1 /HPF (0-5/HPF)
[2021-03-09 23:43] LABS: Amorphous Sediment Urine 2+
== END ==
PROVIDERS: PCP Physician Assistant Medical; Visit Provider Nurse Practitioner
DX: R33.9 Retention of urine, unspecified (principal)
CPT/HCPCS: 81001; 87077; 87086

== ENCOUNTER → 2021-11-21 10:02 | Outpatient (CLI) | payer MEDICARE, MEDICAID, SELFPAY ==
[2021-11-21 12:48] LABS: Cancer Antigen 125 12.6 U/mL (0-35)
== END ==
PROVIDERS: Obstetrics & Gynecology; PCP Physician Assistant Medical; Referring Provider Physician Assistant Medical; Visit Provider Physician Assistant Medical
DX: R19.09 Other intra-abdominal and pelvic swelling, mass and lump (principal); N94.89 Other specified conditions associated with female genital organs and menstrual cycle; R93.89 Abnormal findings on diagnostic imaging of other specified body structures
CPT/HCPCS: 36415; 86304

== ENCOUNTER → 2022-02-13 09:01 | Outpatient (CLI) | payer MEDICARE, MEDICAID, SELFPAY ==
[2022-02-13 11:39] LABS: Cancer Antigen 125 12.6 U/mL (0-35); Carcinoembryonic Antigen 3.5 ng/mL (0.1-3.0)
[2022-02-14 05:29] LABS: Cancer (Carbohydrate) Ag 19-9 24 U/mL (0-35)
[2022-02-15 12:29] LABS: Human Epididymis Prot 4 62.9 pmol/L (0.0-96.9)
== END ==
PROVIDERS: PCP Physician Assistant Medical; Referring Provider Obstetrics & Gynecology; Visit Provider Obstetrics & Gynecology
DX: N83.202 Unspecified ovarian cyst, left side (principal)
CPT/HCPCS: 36415; 82378; 86301; 86304; 86305

== ENCOUNTER → 2022-03-20 08:53 | Outpatient (CLI) | payer MEDICARE, MEDICAID, SELFPAY ==
--- NOTE | 2022-03-20 08:55 | DI.US.S_ITS ---
PROCEDURE: US PELVIC COMPLETE INDICATIONS: left ovarian cyst TECHNIQUE: Real-time scanning was performed of the pelvic organs, with image documentation. Additional endovaginal scanning was necessary due to incomplete visualization of the adnexal and endometrial structures by transabdominal scanning. COMPARISON: [facility], CT, CT ABDOMEN PELVIS WO CON, 03/03/2021, 5:48. [facility], US, US PELVIC COMPLETE, 02/13/2022, 8:47. FINDINGS: Uterus: Uterus is anteverted and normal in size at 5.4 x 1.5 x 1.4 cm. The endometrium measures 1 mm combined thickness. Ovaries: The right ovary measures 2 x 1.3 x 1.5 cm. There is a 7 mm right ovarian cyst seen. The right ovary is not ideally seen. The left ovary measures 4.9 x 2.7 x 2.8 cm. Associated with the left ovary, there are cysts that measure 2.9 x 2.5 x 2.9 cm (previously measuring 2.9 x 2.4 cm) and 1.8 x 2.1 x 2.4 cm (previously measuring 2.3 x 1.8 cm). No adnexal masses are seen. Other: No pathologic free abdominal or pelvic fluid. IMPRESSION: Stable left ovarian cysts are seen, with the largest measuring up to 2.9 cm. In a patient of this age, please consider pelvic ultrasound follow-up in 6-12 months to monitor for stability. We strive to produce accurate, complete, and clear reports of imaging services. To assist us in improving patient care, this report was composed using standard report templates and voice recognition software. Therefore, it may contain abnormal punctuation, insertions and/or omissions. Occasional wrong-word or sound-alike substitutions may occur. Though we review the report and make efforts to correct it, we do recommend that the report be read carefully in proper context to recognize any text inaccuracies. Dictated by: Feng Ornelas M.D. on 03/20/2022 at 13:22 Approved by: Feng Ornelas M.D. on 03/20/2022 at 13:24
== END ==
PROVIDERS: PCP Physician Assistant Medical; Referring Provider Obstetrics & Gynecology; Visit Provider Obstetrics & Gynecology
DX: N83.202 Unspecified ovarian cyst, left side (principal)
CPT/HCPCS: 76830; 76856

== ENCOUNTER → 2022-03-27 15:27 | Outpatient (CLI) | payer MEDICARE, MEDICAID, SELFPAY ==
[2022-03-27 17:41] LABS: Carcinoembryonic Antigen 3.7 ng/mL (0.1-3.0)
== END ==
PROVIDERS: PCP Physician Assistant Medical; Referring Provider Obstetrics & Gynecology; Visit Provider Obstetrics & Gynecology
DX: R97.0 Elevated carcinoembryonic antigen [CEA] (principal)
CPT/HCPCS: 36415; 82378

== ENCOUNTER 2023-04-20 06:28 | Emergency (ER) | payer MEDICARE, MEDICAID, SELFPAY ==
[2023-04-20] VITALS (17 sets, daily range): BP systolic 137–161; BP diastolic 65–70; PULSE 61–74; RESP 16; TEMP 36.4; O2SAT 80–98; BMI 39.5
--- NOTE | 2023-04-20 06:34 | ED_ITS ---
HPI - General Adult <Kevin Rodriguez DO - Last Filed: 04/26/23 07:39> General Chief complaint: Abdominal Pain Stated complaint: abd pain Time Seen by Provider: 04/20/23 06:32 History of Present Illness HPI narrative: 77-year-old female nonsmoker with a history of depression, panic disorder, prior cholecystectomy presents by EMS for evaluation left-sided abdominal pain over the past 24 hours or so. It seems to be increasing in severity and worse when she moves and improves with rest. She last had a bowel movement yesterday afternoon and reports that it was normal. She denies any change in appetite. She is had no fever or chills and denies any urinary complaints such as dysuria, frequency or urgency. Related Data Home Medications Medication Instructions Recorded Confirmed albuterol sulfate 90 mcg/actuation 2 puff INH PRN ##0 07/03/12 02/13/22 aerosol inhaler (Proventil HFA) atorvastatin 20 mg tablet 20 mg PO BEDTIME 30 days 12/17/17 02/13/22 Lactobacillus acidophilus 1 cap PO DAILY 10/12/20 02/13/22 (Acidophilus capsule) calcium carbonate 600 mg calcium 1,200 mg PO DAILY 10/12/20 02/13/22 (1,500 mg) tablet (Calcium) cholecalciferol (vitamin D3) 25 25 mcg PO DAILY 10/12/20 02/13/22 mcg (1,000 unit) capsule (Vitamin D3) dicyclomine 10 mg capsule 10 mg PO QID 10/12/20 02/13/22 meloxicam 7.5 mg tablet 7.5 mg PO DAILY 10/12/20 02/13/22 montelukast 10 mg tablet 10 mg PO DAILY 10/12/20 02/13/22 oxybutynin chloride 10 mg 10 mg PO DAILY 10/12/20 02/13/22 tablet,extended release 24 hr acetaminophen 500 mg tablet 500 mg PO Q6H PRN 02/17/21 02/13/22 (Tylenol Extra Strength) fluticasone 100 mcg-salmeterol 50 1 inh inhalation BID 02/17/21 02/13/22 mcg/dose blistr powdr for inhalation (Advair Diskus) ondansetron 8 mg disintegrating 8 mg PO Q12H 02/17/21 02/13/22 tablet losartan 25 mg tablet 25 mg PO BID 02/13/22 02/13/22 metoprolol succinate 25 mg 25 mg PO BID 02/13/22 02/13/22 tablet,extended release 24 hr Previous Rx's Medication Instructions Recorded bupropion HCl 300 mg 24 hr tablet, 300 mg PO QAM #90 tabs 03/29/21 extended release fluoxetine 20 mg capsule 20 mg PO QDAY #90 caps 03/29/21 gabapentin 100 mg capsule 100 mg PO SEE INSTRUCTIONS #450 03/29/21 caps prazosin 5 mg capsule (Minipress) 5 mg PO HS #90 caps 03/29/21 propranolol 10 mg tablet 10 mg PO BIDP PRN anxiety #180 tabs 03/29/21 Allergies Allergy/AdvReac Type Severity Reaction Status Date / Time amoxicillin Allergy Unknown Verified 02/13/22 08:27 ethyl alcohol Allergy Unknown Verified 02/13/22 08:27 etodolac Allergy Unknown Verified 02/13/22 08:27 oxaprozin Allergy Unknown Verified 02/13/22 08:27 risperidone Allergy Unknown Verified 02/13/22 08:27 tetanus toxoid, adsorbed Allergy Unknown Verified 02/13/22 08:27 acyclovir Allergy Verified 02/13/22 08:27 doxycycline Allergy itching Verified 02/13/22 08:27 Iodine and Iodide Containing Allergy Verified 02/13/22 08:27 Produc oxycodone [From Percocet] Allergy itching Verified 02/13/22 08:27 Review of Systems <Kevin Rodriguez DO - Last Filed: 04/26/23 07:39> Review of Systems Narrative: GENERAL: Denies chills, fatigue, malaise, fever, sweats. HEENT: Denies sinus pain, ear pain, sore throat, difficulty swallowing, dizziness. RESPIRATORY: Denies dyspnea, cough, wheezing, hemoptysis, sputum. CARDIOVASCULAR: Denies chest pain, palpitations, orthopnea, edema, GASTROINTESTINAL: see HPI : Denies dysuria, frequency, incontinence, hematuria, urinary retention. MUSCULOSKELETAL: denies weakness, joint pain, or bony pain SKIN: Denies rash, skin lesions, or other NEUROLOGIC: Denies weakness, headache, numbness, change in speech, confusion, seizures, incoordination. PSYCHIATRIC: No concerning psychosocial issues. 12 point review of systems is negative except for those stated above Patient History <Kevin Rodriguez, DO - Last Filed: 04/26/23 07:39> Medical History Bipolar disorder H/O vaginal delivery Schizophrenia Social History (System 11/16/21 @ 15:11 by Eboni Rosa) household members: none Smoking Status: Never smoker alcohol intake: never Smoking Status: Never smoker Substance Use Type: does not use Exam <Kevin Rodriguez, DO - Last Filed: 04/26/23 07:39> Initial Vital Signs Initial Vital Signs: Vital Signs Pulse Rate 69 04/20/23 06:33 Blood Pressure 141/68 H 04/20/23 06:33 Pulse Oximetry 97 04/20/23 06:33 <Alfredo Conner, DO - Last Filed: 04/20/23 09:33> Initial Vital Signs Initial Vital Signs: Vital Signs Pulse Rate 69 04/20/23 06:33 Blood Pressure 141/68 H 04/20/23 06:33 Pulse Oximetry 97 04/20/23 06:33 Course <Kevin Rodriguez, DO - Last Filed: 04/26/23 07:39> Orders Ordered: Discontinued Medications Diphenhydramine HCl (Diphenhydramine 50 Mg/Ml Vial) 25 mg IV NOW ONE Stop: 04/20/23 06:33 Last Admin: 04/20/23 06:39 Dose: 25 mg Documented By: LOY Famotidine (Famotidine 20 Mg/2 Ml Vial) 20 mg IV NOW RAUL Last Admin: 04/20/23 06:40 Dose: 20 mg Documented By: OLY Sodium Chloride (Normal Saline 0.9%) 1,000 mls @ 1,000 mls/hr IV BOLUS ONE Stop: 04/20/23 07:31 Last Infusion: 04/20/23 08:22 Dose: 0 mls/hr Documented By: Admin: 04/20/23 06:40 Dose: 1,000 mls/hr Documented By: OLY Methylprednisolone (Methylprednisolone 125 Mg/2 Ml Vial) 125 mg IV NOW ONE Stop: 04/20/23 06:33 Last Admin: 04/20/23 06:41 Dose: 125 mg Documented By: OLY Vital Signs Vital signs: Vital Signs - 8 hr 04/20/23 06:36 04/20/23 06:33 04/20/23 06:33 Temperature 97.5 F L Pulse Rate 66 69 Respiratory Rate 16 Blood Pressure 141/68 H 141/68 H Pulse Oximetry 97 97 Oxygen Delivery Method Room Air 04/20/23 06:45 04/20/23 07:00 04/20/23 07:00 Temperature Pulse Rate 65 61 Respiratory Rate Blood Pressure 137/65 Pulse Oximetry 95 94 Oxygen Delivery Method 04/20/23 07:15 04/20/23 07:38 04/20/23 07:39 Temperature Pulse Rate 64 71 68 Respiratory Rate Blood Pressure Pulse Oximetry 96 97 98 Oxygen Delivery Method 04/20/23 07:39 04/20/23 07:45 04/20/23 08:00 Temperature Pulse Rate 66 71 Respiratory Rate Blood Pressure 156/69 H Pulse Oximetry 97 96 Oxygen Delivery Method 04/20/23 08:02 04/20/23 08:02 04/20/23 08:24 Temperature Pulse Rate 71 Respiratory Rate Blood Pressure 161/70 H Pulse Oximetry 96 80 L Oxygen Delivery Method 04/20/23 08:30 Temperature Pulse Rate 70 Respiratory Rate Blood Pressure Pulse Oximetry 98 Oxygen Delivery Method <Alfredo Conner, - Last Filed: 04/20/23 09:33> Orders Ordered: Discontinued Medications Diphenhydramine HCl (Diphenhydramine 50 Mg/Ml Vial) 25 mg IV NOW ONE Stop: 04/20/23 06:33 Last Admin: 04/20/23 06:39 Dose: 25 mg Documented By: OLY Famotidine (Famotidine 20 Mg/2 Ml Vial) 20 mg IV NOW RAUL Last Admin: 04/20/23 06:40 Dose: 20 mg Documented By: OLY Sodium Chloride (Normal Saline 0.9%) 1,000 mls @ 1,000 mls/hr IV BOLUS ONE Stop: 04/20/23 07:31 Last Infusion: 04/20/23 08:22 Dose: 0 mls/hr Documented By: Admin: 04/20/23 06:40 Dose: 1,000 mls/hr Documented By: OLY Methylprednisolone (Methylprednisolone 125 Mg/2 Ml Vial) 125 mg IV NOW ONE Stop: 04/20/23 06:33 Last Admin: 04/20/23 06:41 Dose: 125 mg Documented By: OLY Vital Signs Vital signs: Vital Signs - 8 hr 04/20/23 06:36 04/20/23 06:33 04/20/23 06:33 Temperature 97.5 F L Pulse Rate 66 69 Respiratory Rate 16 Blood Pressure 141/68 H 141/68 H Pulse Oximetry 97 97 Oxygen Delivery Method Room Air 04/20/23 06:45 04/20/23 07:00 04/20/23 07:00 Temperature Pulse Rate 65 61 Respiratory Rate Blood Pressure 137/65 Pulse Oximetry 95 94 Oxygen Delivery Method 04/20/23 07:15 04/20/23 07:38 04/20/23 07:39 Temperature Pulse Rate 64 71 68 Respiratory Rate Blood Pressure Pulse Oximetry 96 97 98 Oxygen Delivery Method 04/20/23 07:39 04/20/23 07:45 04/20/23 08:00 Temperature Pulse Rate 66 71 Respiratory Rate Blood Pressure 156/69 H Pulse Oximetry 97 96 Oxygen Delivery Method 04/20/23 08:02 04/20/23 08:02 04/20/23 08:24 Temperature Pulse Rate 71 Respiratory Rate Blood Pressure 161/70 H Pulse Oximetry 96 80 L Oxygen Delivery Method 04/20/23 08:30 Temperature Pulse Rate 70 Respiratory Rate Blood Pressure Pulse Oximetry 98 Oxygen Delivery Method Medical Decision Making <Kevin Rodriguez, DO - Last Filed: 04/26/23 07:39> Lab Data 04/20/23 06:45 04/20/23 06:45 Labs: Lab Results 04/20/23 04/20/23 04/20/23 Range/Units 06:45 06:45 06:45 WBC 9.0 (4.5-11.0) X10^3/uL RBC 4.13 (4.0-5.2) X10^6/uL Hgb 12.2 (12.0-16.0) g/dL Hct 37.0 (36-46) % MCV 89.5 (80-100) fL MCH 29.6 (26-34) PG MCHC 33.1 (30-36) % RDW 14.4 (11.6-14.8) % Plt Count 228 (150-400) X10^3/uL Neut % (Auto) 62.2 (50-75) % Lymph % (Auto) 24.9 L (25-40) % [place] % (Auto) 7.8 (3-14) % Eos % (Auto) 3.9 (2-4) % Baso % (Auto) 1.2 (0-2) % Neut # (Auto) 5600 (3532-1970) /uL Lymph # (Auto) 2200 (0513-9069) /uL [place] # (Auto) 700 (0-900) /uL Eos # (Auto) 300 (0-450) /uL Baso # (Auto) 100 (0-100) /uL Sodium 136 L (137-145) mmol/L Potassium 3.7 (3.4-5.1) mmol/L Chloride 107 (98-107) mmol/L Carbon Dioxide 20 L (22-32) mmol/L BUN 18 H (7-17) mg/dL Creatinine 1.14 H (0.52-1.04) mg/dL Estimated GFR 50 L (>60) mL/min BUN/Creatinine Ratio 15.8 (6-22) Glucose 129 H (80-110) mg/dL Lactate 1.1 (0.7-2.1) mmol/L Calcium 9.0 (8.4-10.2) mg/dL Magnesium 1.5 L (1.6-2.3) mg/dL Total Bilirubin 0.5 (0.2-1.3) mg/dL AST 24 (14-36) IU/L ALT 21 (<35) IU/L Alkaline Phosphatase 86 (38-126) U/L Total Protein 6.9 (6.3-8.2) g/dL Albumin 3.6 (3.5-5.0) g/dL Globulin 3.3 (1.7-4.1) g/dL Albumin/Globulin Ratio 1.1 (1.0-2.8) Lipase 57 (23-300) U/L Urine RBC (0-5/HPF) Urine WBC (0-5/HPF) Ur Squamous Epith Cells (0-5/HPF) Urine Bacteria (None) Ur Culture Indicated? 04/20/23 Range/Units 08:25 WBC (4.5-11.0) X10^3/uL RBC (4.0-5.2) X10^6/uL Hgb (12.0-16.0) g/dL Hct (36-46) % MCV (80-100) fL MCH (26-34) PG MCHC (30-36) % RDW (11.6-14.8) % Plt Count (150-400) X10^3/uL Neut % (Auto) (50-75) % Lymph % (Auto) (25-40) % [place] % (Auto) (3-14) % Eos % (Auto) (2-4) % Baso % (Auto) (0-2) % Neut # (Auto) (5813-8644) /uL Lymph # (Auto) (6817-7259) /uL [place] # (Auto) (0-900) /uL Eos # (Auto) (0-450) /uL Baso # (Auto) (0-100) /uL Sodium (137-145) mmol/L Potassium (3.4-5.1) mmol/L Chloride (98-107) mmol/L Carbon Dioxide (22-32) mmol/L BUN (7-17) mg/dL Creatinine (0.52-1.04) mg/dL Estimated GFR (>60) mL/min BUN/Creatinine Ratio (6-22) Glucose (80-110) mg/dL Lactate (0.7-2.1) mmol/L Calcium (8.4-10.2) mg/dL Magnesium (1.6-2.3) mg/dL Total Bilirubin (0.2-1.3) mg/dL AST (14-36) IU/L ALT (<35) IU/L Alkaline Phosphatase (38-126) U/L Total Protein (6.3-8.2) g/dL Albumin (3.5-5.0) g/dL Globulin (1.7-4.1) g/dL Albumin/Globulin Ratio (1.0-2.8) Lipase (23-300) U/L Urine RBC None seen (0-5/HPF) Urine WBC 1-5/hpf (0-5/HPF) Ur Squamous Epith Cells 1-5 /hpf (0-5/HPF) Urine Bacteria None seen (None) Ur Culture Indicated? Specimen cultured Urine Dip Bedside Urine Glucose Negative Bedside Urine Bilirubin - Negative Bedside Urine Ketone - Negative Urine Specific [place] 1.005 Bedside Urine Occult Blood - Negative Bedside Urine pH 6.0 Bedside Urine Protein - Negative Bedside Urine Urobilinogen - Negative Bedside Urine Nitrite - Negative Bedside Urine Leukocytes +/- 15 Esterase Point of care testing: Urine Dip Bedside Urine Glucose Negative Bedside Urine Bilirubin - Negative Bedside Urine Ketone - Negative Urine Specific [place] 1.005 Bedside Urine Occult Blood - Negative Bedside Urine pH 6.0 Bedside Urine Protein - Negative Bedside Urine Urobilinogen - Negative Bedside Urine Nitrite - Negative Bedside Urine Leukocytes +/- 15 Esterase <Alfredo ConnerDO - Last Filed: 04/20/23 09:33> Medical Records Medical records reviewed: Yes I reviewed the patient's medical records. Lab Data Lab results reviewed: Yes I reviewed the patient's lab results. Labs: Lab Results 04/20/23 04/20/23 04/20/23 Range/Units 06:45 06:45 06:45 WBC 9.0 (4.5-11.0) X10^3/uL RBC 4.13 (4.0-5.2) X10^6/uL Hgb 12.2 (12.0-16.0) g/dL Hct 37.0 (36-46) % MCV 89.5 (80-100) fL MCH 29.6 (26-34) PG MCHC 33.1 (30-36) % RDW 14.4 (11.6-14.8) % Plt Count 228 (150-400) X10^3/uL Neut % (Auto) 62.2 (50-75) % Lymph % (Auto) 24.9 L (25-40) % [place] % (Auto) 7.8 (3-14) % Eos % (Auto) 3.9 (2-4) % Baso % (Auto) 1.2 (0-2) % Neut # (Auto) 5600 (2337-4050) /uL Lymph # (Auto) 2200 (8384-0984) /uL [place] # (Auto) 700 (0-900) /uL Eos # (Auto) 300 (0-450) /uL Baso # (Auto) 100 (0-100) /uL Sodium 136 L (137-145) mmol/L Potassium 3.7 (3.4-5.1) mmol/L Chloride 107 (98-107) mmol/L Carbon Dioxide 20 L (22-32) mmol/L BUN 18 H (7-17) mg/dL Creatinine 1.14 H (0.52-1.04) mg/dL Estimated GFR 50 L (>60) mL/min BUN/Creatinine Ratio 15.8 (6-22) Glucose 129 H (80-110) mg/dL Lactate 1.1 (0.7-2.1) mmol/L Calcium 9.0 (8.4-10.2) mg/dL Magnesium 1.5 L (1.6-2.3) mg/dL Total Bilirubin 0.5 (0.2-1.3) mg/dL AST 24 (14-36) IU/L ALT 21 (<35) IU/L Alkaline Phosphatase 86 (38-126) U/L Total Protein 6.9 (6.3-8.2) g/dL Albumin 3.6 (3.5-5.0) g/dL Globulin 3.3 (1.7-4.1) g/dL Albumin/Globulin Ratio 1.1 (1.0-2.8) Lipase 57 (23-300) U/L Urine RBC (0-5/HPF) Urine WBC (0-5/HPF) Ur Squamous Epith Cells (0-5/HPF) Urine Bacteria (None) Ur Culture Indicated? 04/20/23 Range/Units 08:25 WBC (4.5-11.0) X10^3/uL RBC (4.0-5.2) X10^6/uL Hgb (12.0-16.0) g/dL Hct (36-46) % MCV (80-100) fL MCH (26-34) PG MCHC (30-36) % RDW (11.6-14.8) % Plt Count (150-400) X10^3/uL Neut % (Auto) (50-75) % Lymph % (Auto) (25-40) % [place] % (Auto) (3-14) % Eos % (Auto) (2-4) % Baso % (Auto) (0-2) % Neut # (Auto) (0750-7987) /uL Lymph # (Auto) (6617-5042) /uL [place] # (Auto) (0-900) /uL Eos # (Auto) (0-450) /uL Baso # (Auto) (0-100) /uL Sodium (137-145) mmol/L Potassium (3.4-5.1) mmol/L Chloride (98-107) mmol/L Carbon Dioxide (22-32) mmol/L BUN (7-17) mg/dL Creatinine (0.52-1.04) mg/dL Estimated GFR (>60) mL/min BUN/Creatinine Ratio (6-22) Glucose (80-110) mg/dL Lactate (0.7-2.1) mmol/L Calcium (8.4-10.2) mg/dL Magnesium (1.6-2.3) mg/dL Total Bilirubin (0.2-1.3) mg/dL AST (14-36) IU/L ALT (<35) IU/L Alkaline Phosphatase (38-126) U/L Total Protein (6.3-8.2) g/dL Albumin (3.5-5.0) g/dL Globulin (1.7-4.1) g/dL Albumin/Globulin Ratio (1.0-2.8) Lipase (23-300) U/L Urine RBC None seen (0-5/HPF) Urine WBC 1-5/hpf (0-5/HPF) Ur Squamous Epith Cells 1-5 /hpf (0-5/HPF) Urine Bacteria None seen (None) Ur Culture Indicated? Specimen cultured Urine Dip Bedside Urine Glucose Negative Bedside Urine Bilirubin - Negative Bedside Urine Ketone - Negative Urine Specific [place] 1.005 Bedside Urine Occult Blood - Negative Bedside Urine pH 6.0 Bedside Urine Protein - Negative Bedside Urine Urobilinogen - Negative Bedside Urine Nitrite - Negative Bedside Urine Leukocytes +/- 15 Esterase Point of care testing: Urine Dip Bedside Urine Glucose Negative Bedside Urine Bilirubin - Negative Bedside Urine Ketone - Negative Urine Specific [place] 1.005 Bedside Urine Occult Blood - Negative Bedside Urine pH 6.0 Bedside Urine Protein - Negative Bedside Urine Urobilinogen - Negative Bedside Urine Nitrite - Negative Bedside Urine Leukocytes +/- [address] scan - abdomen/pelvis: Radiologist's Impression: PROCEDURE:? CT ABDOMEN PELVIS W CON ? INDICATIONS:? LLQ abd pain ? TECHNIQUE:? After the administration of IV contrast, axial sections were acquired from the lung bases to the pubic symphysis.? Coronal and sagittal reformats were performed.? For radiation dose reduction, the following was used:? automated exposure control, adjustment of mA and/or kV according to patient size. ? COMPARISON:? Outside Film, MR, MR LUMBAR SPINE WITHOUT CONTRAST, 06/06/2022, 11:39.? [facility], CR, XR LUMBAR SPINE WITH FLEXION EXTENSION 5 VIEWS, 03/12/2023, 10:25.? [facility], CT, CT ABDOMEN PELVIS WO CON, 03/03/2021, 5:48. ? FINDINGS:? Image quality:? Excellent.? ? Lung bases:? Bibasilar atelectasis.? ? Heart:? No significant findings. ? ? ABDOMEN: Normal size.? Mild hepatic steatosis Gallbladder:? Surgically absent.? ? Biliary ducts:? Unremarkable.? ? Pancreas:? Unremarkable.? ? Spleen:? Unremarkable.? ? Adrenal Glands:? Unremarkable.? ? Kidneys and Ureters:? There is a 6 mm stone in the inferior pole of the left kidney demonstrating CT density 967 HU.? ? There is mild left renal pelviectasis.? Mild right renal pelviectasis is also present.? No right renal calculi. ? Stomach and Bowel:? Stomach, small bowel loops, and colon are normal in caliber.? Diverticulosis.? No acute diverticulitis.? There is a large amount of stool in colon.? Peritoneum:? No abnormal intraperitoneal fluid.? No free air.? ? Ventral Wall: ? No hernia.? Abdominal Nodes:? No retroperitoneal or mesenteric adenopathy by size criteria.? Vessels:? Aorta and inferior vena cava are normal in size.? ? PELVIS: Pelvic Organs:? Uterus is unremarkable.? There is a cluster cyst or complex cyst in the left adnexa measuring 2.6 x 3.9 cm.? ? Bladder:? Mildly distended.? No wall thickening.? ? Pelvic Nodes: No enlarged lymph nodes.? Miscellaneous: No inguinal hernias are seen. ? ? ? Bones:? There is severe degenerative disc and facet disease in lumbar spine.? There is [id number] central canal stenosis at L1-L2, L2-L3, L3-L4 and L4-L5.? IMPRESSION:? ? 1. There is a 6 mm nonobstructive stone in left kidney.? There is mild bilateral renal pelviectasis.? No obstructive stones are identified. ? 2. Distended urinary bladder. ? 3. A cluster cyst or complex cyst in the left ovary measuring 2.6 x 3.9 cm.? A differential diagnosis is hydrosalpinx. ? 4. Diverticulosis without diverticulitis. ? 5. A large amount of stool in colon. ? 6. Severe degenerative disc and facet disease causing [id number] central canal stenosis in lumbar spine.? CT scan - head: Radiologist's Impression: PROCEDURE:? CT HEAD/BRAIN WO CON ? INDICATIONS:? fell and hit head on thinners ? TECHNIQUE:? Noncontrast 4.5 mm thick angled axial sections acquired from the foramen magnum to the vertex, with coronal and sagittal reformats.? For radiation dose reduction, the following was used:? automated exposure control, adjustment of mA and/or kV according to patient size.? ? COMPARISON:? None. ? FINDINGS:? Image quality:? Excellent.? ? CSF spaces:? Basal cisterns are patent.? No extra-axial fluid collections.? The ventricles are symmetric in size and shape.? ? Brain:? No intracranial bleeds or masses.? There is cerebral volume loss for age, with resultant ventricular and sulcal prominence.? There are periventricular and deep white matter chronic small vessel ischemic changes.? There is intracranial internal carotid artery atherosclerosis.? ? Skull and face:? Hyperostosis frontalis.? Calvarium and visualized facial bones appear intact, without suspicious lesions.? ? Sinuses:? There is right maxillary sinus mucosal thickening and a air-fluid level.? The mastoids are clear.? ? IMPRESSION:? ? 1. No acute intracranial abnormalities. ? 2. Cerebral volume loss and chronic microvascular ischemic changes. ? 3. Right maxillary sinusitis. [facility] Narrative Medical decision making narrative: Dr conner: Received turned over. Review patient's history and physical exam. Urinalysis is unremarkable. Labs are relatively unremarkable. CT scan of the abdomen shows a moderate amount of stool but no other acute pathology. I did discuss this with her. She is not retaining urine. No indication for surgical consultation. No indication for antibiotics. Patient did have an incident here in the emergency department after getting back into the bed off the toilet. She slipped off the bed. She did hit her head. No loss of consciousness. She has been ambulatory. She is on blood thinners. Head CT shows no bleed. I discussed all this with the patient. Will discharge patient home with instructions to start on a bowel regimen. She was given return precautions. She expressed understanding and agreement. Discharge Plan Departure Patient Disposition: Home Clinical Impression: Abdominal pain Instructions: DI for Abdominal Pain-Adult Activity Restrictions/Additional Instructions: Continue to take all of your medications as directed. Be sure that you start on a good bowel regimen like we discussed. This may include stool softeners and laxatives as needed. You can purchase this [id number]. Contact your primary doctor for a follow-up. Return to the emergency department for new or worsening symptoms. Prescriptions: No Action atorvastatin 20 mg tablet 20 mg PO BEDTIME 30 Days ondansetron 8 mg tablet,disintegrating 8 mg PO Q12H fluticasone propion-salmeterol [Advair Diskus] 100-50 mcg/dose blister with device 1 inh inhalation BID acetaminophen [Tylenol Extra Strength] 500 mg tablet 500 mg PO Q6H PRN bupropion HCl 300 mg tablet extended release 24 hr 300 mg PO QAM Qty: 90 2RF fluoxetine 20 mg capsule 20 mg PO QDAY Qty: 90 2RF gabapentin 100 mg capsule 100 mg PO SEE INSTRUCTIONS Qty: 450 2RF Rx Instructions: Take 100mg in the AM and 400mg 2 hours ahead of desired bedtime. prazosin [Minipress] 5 mg capsule 5 mg PO HS Qty: 90 2RF propranolol 10 mg tablet 10 mg PO BIDP PRN (Reason: anxiety) Qty: 180 1RF albuterol sulfate [Proventil HFA] 90 MCG/PUFF HFA aerosol inhaler 2 puff INH PRN Qty: 0 metoprolol succinate 25 mg tablet extended release 24 hr 25 mg PO BID losartan 25 mg tablet 25 mg PO BID oxybutynin chloride 10 mg tablet extended release 24hr 10 mg PO DAILY meloxicam 7.5 mg tablet 7.5 mg PO DAILY calcium carbonate [Calcium 600] 600 mg calcium (1,500 mg) Tablet 1,200 mg PO DAILY montelukast 10 mg tablet 10 mg PO DAILY Lactobacillus acidophilus [Acidophilus] Capsule 1 cap PO DAILY dicyclomine 10 mg capsule 10 mg PO QID cholecalciferol (vitamin D3) [Vitamin D3] 25 mcg (1,000 unit) Capsule 25 mcg PO DAILY Referrals: Melody Bryant PA-C [Primary Care Provider] - Stand Alone Forms: Patient Portal/API
[2023-04-20] MEDS: diphenhydrAMINE 50 MG/ML VIAL 25 MG IV (06:39)
[2023-04-20] MEDS: FAMOTIDINE 20 MG/2 ML VIAL IV (06:40)
[2023-04-20] MEDS: SODIUM CHLORIDE 0.9% 1,000 ML 1000 ML IV (06:40)
[2023-04-20] MEDS: methylPREDNISolone 125 MG/2 ML VIAL IV (06:41)
[2023-04-20 06:50] LABS: Add Manual Diff / Slide Review NO; Basophils Absolute Auto 100 /uL (0-100); Basophils Percent Auto 1.2 % (0-2); Eosinophils Absolute Auto 300 /uL (0-450); Eosinophils Percent Auto 3.9 % (2-4); Hemoglobin 12.2 g/dL (12.0-16.0); Lymphocytes Absolute Auto 2200 /uL (1100-4500); Lymphocytes Percent Auto 24.9 % (25-40); Mean Corpuscular HGB Conc 33.1 % (30-36); Mean Corpuscular Hemoglobin 29.6 PG (26-34); Mean Corpuscular Volume 89.5 fL (80-100); Monocytes Absolute Auto 700 /uL (0-900); Monocytes Percent Auto 7.8 % (3-14); Neutrophils Absolute Auto 5600 /uL (1500-7000); Neutrophils Percent Auto 62.2 % (50-75); Platelet Count 228 X10^3/uL (150-400); Red Blood Cell Count 4.13 X10^6/uL (4.0-5.2); Red Cell Distribution Width 14.4 % (11.6-14.8)
[2023-04-20 07:01] LABS: Lactate (Lactic Acid) 1.1 mmol/L (0.7-2.1)
[2023-04-20 07:03] LABS: Alanine Aminotransferase 21 IU/L (<35); Albumin 3.6 g/dL (3.5-5.0); Albumin Globulin Ratio 1.1 (1.0-2.8); Alkaline Phosphatase 86 U/L (38-126); Aspartate Aminotransferase 24 IU/L (14-36); BUN Creatinine Ratio 15.8 (6-22); Bilirubin Total 0.5 mg/dL (0.2-1.3); Blood Urea Nitrogen 18 mg/dL (7-17); Carbon Dioxide 20 mmol/L (22-32); Chloride 107 mmol/L (98-107); Estimated Glomerular Filt Rate 50 mL/min (>60); Globulin 3.3 g/dL (1.7-4.1); Glucose 129 mg/dL (80-110); HEMOLYSIS 30 (0-50); Lipase 57 U/L (23-300); Magnesium 1.5 mg/dL (1.6-2.3); Potassium 3.7 mmol/L (3.4-5.1); Sodium 136 mmol/L (137-145); Total Protein 6.9 g/dL (6.3-8.2)
--- NOTE | 2023-04-20 07:18 | DI.CT.S_ITS ---
PROCEDURE: CT ABDOMEN PELVIS W CON INDICATIONS: LLQ abd pain TECHNIQUE: After the administration of IV contrast, axial sections were acquired from the lung bases to the pubic symphysis. Coronal and sagittal reformats were performed. For radiation dose reduction, the following was used: automated exposure control, adjustment of mA and/or kV according to patient size. COMPARISON: Outside Film, MR, MR LUMBAR SPINE WITHOUT CONTRAST, 06/06/2022, 11:39. [facility], CR, XR LUMBAR SPINE WITH FLEXION EXTENSION 5 VIEWS, 03/12/2023, 10:25. [facility], CT, CT ABDOMEN PELVIS WO CON, 03/03/2021, 5:48. FINDINGS: Image quality: Excellent. Lung bases: Bibasilar atelectasis. Heart: No significant findings. ABDOMEN: Normal size. Mild hepatic steatosis Gallbladder: Surgically absent. Biliary ducts: Unremarkable. Pancreas: Unremarkable. Spleen: Unremarkable. Adrenal Glands: Unremarkable. Kidneys and Ureters: There is a 6 mm stone in the inferior pole of the left kidney demonstrating CT density 967 HU. There is mild left renal pelviectasis. Mild right renal pelviectasis is also present. No right renal calculi. Stomach and Bowel: Stomach, small bowel loops, and colon are normal in caliber. Diverticulosis. No acute diverticulitis. There is a large amount of stool in colon. Peritoneum: No abnormal intraperitoneal fluid. No free air. Ventral Wall: No hernia. Abdominal Nodes: No retroperitoneal or mesenteric adenopathy by size criteria. Vessels: Aorta and inferior vena cava are normal in size. PELVIS: Pelvic Organs: Uterus is unremarkable. There is a cluster cyst or complex cyst in the left adnexa measuring 2.6 x 3.9 cm. Bladder: Mildly distended. No wall thickening. Pelvic Nodes: No enlarged lymph nodes. Miscellaneous: No inguinal hernias are seen. Bones: There is severe degenerative disc and facet disease in lumbar spine. There is juhdjdob-[id number] central canal stenosis at L1-L2, L2-L3, L3-L4 and L4-L5. IMPRESSION: 1. There is a 6 mm nonobstructive stone in left kidney. There is mild bilateral renal pelviectasis. No obstructive stones are identified. 2. Distended urinary bladder. 3. A cluster cyst or complex cyst in the left ovary measuring 2.6 x 3.9 cm. A differential diagnosis is hydrosalpinx. 4. Diverticulosis without diverticulitis. 5. A large amount of stool in colon. 6. Severe degenerative disc and facet disease causing tmaxixgf-lt-ioigme central canal stenosis in lumbar spine. Dictated by: Samia Sarabia M.D. on 04/20/2023 at 8:23 Approved by: Samia Sarabia M.D. on 04/20/2023 at 8:33
--- NOTE | 2023-04-20 08:26 | PC.NURSE ---
PAEDODONTIST ambulated pt to bathroom. Pt ambulating with steady gait. Arrived back to room with PAEDODONTIST, sitting on edge of bed. While pt was being situated with monitoring, she feel to the right side and slid off of bed. Pt reports hitting her head on the wall, complaining of dizziness. Assisted up with RN x3 and PAEDODONTIST. Able to bear weight and take a few steps. Denies hip pain. Full range of motion in upper extremties. Reports pain while palpating posterior aspect of head. Resting on stretcher with both siderails in place. Call light available. Dr Conner aware and at bedside. Order for head CT. Pt awake, alert & oriented.
--- NOTE | 2023-04-20 08:27 | DI.CT.S_ITS ---
PROCEDURE: CT HEAD/BRAIN WO CON INDICATIONS: fell and hit head on thinners TECHNIQUE: Noncontrast 4.5 mm thick angled axial sections acquired from the foramen magnum to the vertex, with coronal and sagittal reformats. For radiation dose reduction, the following was used: automated exposure control, adjustment of mA and/or kV according to patient size. COMPARISON: None. FINDINGS: Image quality: Excellent. CSF spaces: Basal cisterns are patent. No extra-axial fluid collections. The ventricles are symmetric in size and shape. Brain: No intracranial bleeds or masses. There is cerebral volume loss for age, with resultant ventricular and sulcal prominence. There are periventricular and deep white matter chronic small vessel ischemic changes. There is intracranial internal carotid artery atherosclerosis. Skull and face: Hyperostosis frontalis. Calvarium and visualized facial bones appear intact, without suspicious lesions. Sinuses: There is right maxillary sinus mucosal thickening and a air-fluid level. The mastoids are clear. IMPRESSION: 1. No acute intracranial abnormalities. 2. Cerebral volume loss and chronic microvascular ischemic changes. 3. Right maxillary sinusitis. Dictated by: Samia Sarabia M.D. on 04/20/2023 at 8:50 Approved by: Samia Sarabia M.D. on 04/20/2023 at 8:53
--- NOTE | 2023-04-20 08:28 | PC.NURSE ---
Ambulated to bathroom with steady gait.
--- NOTE | 2023-04-20 08:41 | PC.NURSE ---
this SOFT MUD MOLDER walked pt back to pt's room from bathroom. this SOFT MUD MOLDER held pt's hand and arm for standby and helped pt to sit on the bed. pt was sitting evenly on the edge of the bed. She then leaned to the right and slid off the bed away from me and I was unable to stop her from falling onto the floor. She landed on her right hip and struck the right side of her head on the wall. RNs and doctor assessing pt. I helped the pt stand with assistance from 3 RNs. pt was able to stand after assistance and was helped into bed.
[2023-04-20 08:56] LABS: Bacteria Urine None Seen; RBC Urine None Seen (0-5/HPF); WBC Urine 1-5/HPF (0-5/HPF)
[2023-04-20 08:57] LABS: Culture Indicated Urine Specimen Cultured; Squamous Epithelial Cell Urine 1-5 /HPF (0-5/HPF)
--- NOTE | 2023-04-20 10:02 | PC.NURSE ---
Pt reports she has no way to return home. [facility] brought her here because [facility] CT was unavailable. Pt DC'd. New brief applied and paper pants put on. pt was able to ambulate to wheelchair. [facility] called and ETA 1130am. Pt states she has no money and no cell phone and no one to call for a ride home. voucher given. Pt waiting in vestibule area next to security with snacks provided. Security aware.
== END 2023-04-20 10:07 | disposition home or self-care (01) ==
PROVIDERS: Emergency Medicine; Emergency Provider Emergency Medicine; PCP Physician Assistant Medical
DX: R10.9 Unspecified abdominal pain (principal); S09.90XA Unspecified injury of head, initial encounter; W19.XXXA Unspecified fall, initial encounter; Z79.899 Other long term (current) drug therapy; Z79.01 Long term (current) use of anticoagulants
CPT/HCPCS: 36415; 51798; 70450; 74177; 80053; 81003; 81015; 83605; 83690; 83735; 85025; 87086; 96361; 96374; 96375; 99284; J1200; J2930; Q9967

== ENCOUNTER → 2023-11-05 09:39 | Outpatient (CLI) | payer MEDICARE, MEDICAID, SELFPAY ==
--- NOTE | 2023-11-05 09:42 | DI.MRI.S_ITS ---
BREAST MRI OF BOTH BREASTS: 11/05/2023 CLINICAL: Right breast mass. Comparison is made to exams dated: 10/15/2023 stereotactic biopsy, 10/04/2023 mammogram, 08/30/2023 mammogram, 08/28/2022 mammogram, and 10/04/2023 ultrasound - [facility]. INDICATIONS: right breast cancer TECHNIQUE: The patient was placed prone in a dedicated breast imaging coil. Axial bilateral STIR and T1 fast spin echo sequences with and without fat saturation were acquired. Patient terminated the exam before contrast could be administered or additional sequences obtained. FINDINGS: Image quality: Excellent. However, patient terminated the exam early before contrast was administered, which severely limits the diagnostic utility of the exam. There are scattered fibroglandular elements in both breasts. Right breast: A biopsy clip is seen in the right breast 8 o'clock position middle depth corresponding to the recent biopsy with pathology results demonstrating invasive ductal carcinoma with lobular features. Small amount of adjacent [id number] material is likely related to trace residual blood products. Extent of disease cannot be assessed in the absence of intravenous contrast material. No significantly enlarged axillary lymph nodes are seen. No definite bulky internal mammary lymph nodes, although evaluation is compromised by lack of intravenous contrast material. Left breast: [id number] cysts are noted in the left breast. No obvious large bulky mass in the left breast, although evaluation is compromised by lack of intravenous contrast material. No bulky axillary or internal mammary lymphadenopathy is identified. Included portions of the anterior chest wall and upper abdomen demonstrate no significant abnormality in the absence of intravenous contrast material. IMPRESSION: KNOWN BIOPSY PROVEN MALIGNANCY 1. Please note that the exam was terminated early by the patient, and intravenous contrast material was not administered. This results in the exam being essentially nondiagnostic. Consider repeat MRI if clinically feasible. 2. Biopsy clip is seen in the right breast corresponding to the known biopsy-proven malignancy. Extent of local disease cannot be assessed. 3. No bulky axillary or internal mammary lymphadenopathy is seen. BIRADS 6: Known biopsy-proven malignancy. This exam was interpreted at Station ID: [id number]. Electronically Signed By: Avinash Melendez M.D. ar/:11/06/2023 08:44:42 ACR BI-RADS Category 6: Known biopsy proven malignancy [id number]
== END ==
LOC: MRI 09:40
PROVIDERS: PCP Physician Assistant Medical; Referring Provider Physician Assistant Medical; Visit Provider Physician Assistant Medical
DX: C50.511 Malignant neoplasm of lower-outer quadrant of right female breast (principal); N60.02 Solitary cyst of left breast
CPT/HCPCS: 77047